=== PATIENT | male | born 1960 | race Caucasian/White ===

== ENCOUNTER 2018-11-02 17:28 | Day surgery (SDC) | payer SELFPAY ==
[~2018-11-02 17:28] MED LIST: PHENYLEPHRINE-NS 100 MCG/ML 10 ML SYRINGE ONE; PROPOFOL 200 MG/20 ML VIAL ONE; Succinylcholine Chloride 20 MG/ML 10 ml SYRINGE FS ONE
[2018-11-02 18:49] LABS: Hemoglobin 14.1 g/dL (14.0-18.0); Mean Corpuscular HGB CONC 34.4 g/dL (32.0-36.0); Mean Corpuscular Hemoglobin 34.9 pg (27.0-31.0); Mean Platelet Volume 6.9 fL (7.4-10.4); Platelet Count 333 thou/uL (130-400); RBC Distribution Width 11.8 % (11.5-14.5); Red Blood Cell (RBC) Count 4.03 mill/uL (4.70-6.10); White Blood Cell (WBC) Count 6.6 thou/uL (4.8-10.8)
[2018-11-02 18:55] LABS: ALT (SGPT) 42 U/L (8-55); AST (SGOT) 40 U/L (5-34); Albumin 4.4 g/dL (3.5-5.0); Alkaline Phosphatase 66 U/L (40-150); Anion Gap 13 mmol/L (10-20); BUN (Urea Nitrogen) 23 mg/dL (8.4-25.7); Bilirubin, Total 0.7 mg/dL (0.2-1.2); Calc. Creatinine Clearance 0 mL/min (70-130); Carbon Dioxide 22 mmol/L (22-29); Chloride 106 mmol/L (98-107); Estimated GFR-MDRD 72; Globulin 4.4 g/dL (2.4-3.5); Glucose 94 mg/dL (70-105); Potassium 3.9 mmol/L (3.5-5.1); Protein, Total 8.8 g/dL (6.0-8.3); Sodium 137 mmol/L (136-145)
[2018-11-02 19:00] LABS: Band 3 % (5-11); Lymphocytes 17 % (21-51); MDiff Complete? YES; Monocytes 17 % (0-10); Neutrophil 62 % (42-75); PLT Morphology Comment Appears Adequate
[2018-11-02] MEDS ORDERED: Midazolam HCl 2 mg/2 ml Vial ONE (19:11)
[2018-11-02] MEDS ORDERED: Fentanyl 100 MCG/2 ML VIAL ONE (19:11)
--- NOTE | 2018-11-03 02:47 | HP ---
GI ER CONSULTATION NOTE REQUESTING PHYSICIAN: Dr. Neri. REASON FOR CONSULTATION: Esophageal food bolus infection. HISTORY OF PRESENT ILLNESS: Chapin Tanner is a 58-year-old man, who is at the [facility] in [place] for the past week for his chronic alcoholism. He denies any other significant past medical or surgical history. He does not take any medications. He is trying to quit smoking and he has been sober from alcohol for the past week, but is normally a heavy drinker. He denies any chronic heartburn symptoms. He says over the years, he has had very occasional episodes of mild dysphagia to solids, feeling like food hangs up in the upper chest, but it has always been quite transient and intermittent. However, today, for lunch, he was having some pot roast and unfortunately, he took a really big bite and felt like it lodged in the upper chest. This has been quite uncomfortable for him for about the past 6 hours now. He has been trying to bring it back up. He tried to induce vomiting with his finger and then actually with a big wooden spoon, but he was unsuccessful at this. He is unable to handle his secretions. Glucagon was tried and was unsuccessful, and he was transferred here for upper endoscopy. He denies any chronic gastrointestinal symptoms. He denies any family history of esophageal malignancy. REVIEW OF SYSTEMS: Full review of systems including constitutional; head, eyes, ears, nose, throat, GI, , cardiovascular, respiratory, musculoskeletal, and neurologic systems is negative, except as noted in the HPI. PAST MEDICAL HISTORY: Alcohol abuse, tobacco abuse. SOCIAL HISTORY: He normally drinks alcohol heavily, but is in rehab for this. He is trying to quit smoking. No drug abuse. FAMILY HISTORY: Negative for GI malignancy. ALLERGIES: NO KNOWN DRUG ALLERGIES. OUTPATIENT MEDICATIONS: None. PHYSICAL EXAMINATION: GENERAL: No acute distress, spitting up into a bag occasionally. SKIN: No jaundice. No rashes were palpable. EYES: No scleral icterus. Extraocular movements intact. ENT: Mucous membranes moist. No oral lesions. LYMPH: No submandibular or supraclavicular lymphadenopathy. THYROID: Nontender to palpation. HEART: Regular rate and rhythm. LUNGS: Clear to auscultation bilaterally. ABDOMEN: Bowel sounds present. Soft and tender to palpation throughout. No masses or organomegaly appreciated. EXTREMITIES: No peripheral edema. VESSELS: Radial pulses 2+ bilaterally. NEUROLOGIC: Cranial nerves 2 through 12 intact bilaterally. No focal deficits. ASSESSMENT AND PLAN: 1. Esophageal food bolus impaction. 2. Chronic intermittent dysphagia. We will need to perform upper endoscopy urgently this evening to remove the foreign body and also ascertain the reason for this episode. I discussed that I might take esophageal biopsies or perform esophageal dilation. He may need chronic acid suppression depending on findings. He desires to proceed. I anticipate he will be able to be discharged back to his rehab facility following the procedure. Job ID: [id number] [facility]
--- NOTE | 2018-11-03 03:11 | OP ---
DATE OF PROCEDURE: 11/02/2018 [employer] SURGEON: None. PROCEDURE PERFORMED: Esophagogastroduodenoscopy with removal of foreign body. INDICATION: Esophageal food bolus impaction. MEDICATIONS: See Anesthesia record. FINDINGS: After discussion of the risks, benefits, and alternatives of the procedure, informed consent was obtained and witnessed. Pre-endoscopic cardiopulmonary examination was satisfactory. Time-out was performed before sedation was achieved. Sedation was achieved with Anesthesia assistance in the endoscopy unit. A Pentax adult upper endoscope was placed into the oropharynx and passed through the cricopharyngeus under direct visualization. In the proximal esophagus, at 15 cm from the incisors, I encountered a large food bolus, which appeared to be large piece of pot roast. This was severely impacted. I used rat-toothed forceps to debulk the meat bolus, this took quite a long time due to the friability of the meat. After an extensive time working on this, the impaction was finally debulked to the point where it would slide easily down the remainder of the esophagus and into the stomach, and thus the food bolus was cleared. Examination of the esophagus revealed significant maceration and edema in the upper esophagus at the site of the food impaction from about 15 cm to 20 cm from the incisors. The remainder of the esophagus appeared normal. There was no evidence of peptic stricture or esophageal ring or any changes consistent with eosinophilic esophagitis. No mass lesion. The endoscope was advanced into the stomach. Forward and retroflexed views of the entire gastric mucosa were obtained and the gastric mucosa appeared normal. The endoscope was passed beyond the pylorus and then into the first and second portions of the duodenum. There were moderate erythema and edema in the duodenal sweep. The upper endoscope was then completely withdrawn and the patient allowed to recover. The patient tolerated the procedure well. There were no immediate postprocedure complications. IMPRESSION: 1. Large food bolus from 15 cm to 20 cm in the upper esophagus, completely removed. 2. Maceration at the impaction site, but otherwise normal-appearing esophagus. 3. Duodenitis. RECOMMENDATIONS: 1. Protonix 40 mg daily for the next month. 2. Chew food thoroughly. 3. Liquid diet tomorrow, then advance slowly thereafter. Job ID: [id number]
== END 2018-11-02 21:39 | disposition home or self-care (01) ==
LOC: ERS 17:28 → SDC/OP 19:55
PROVIDERS: ATTEND Internal Medicine
PROC: 0DC58ZZ Extirpation of Matter from Esophagus, Via Natural or Artificial Opening Endoscopic (ICD-10-PCS; principal; 2018-11-02)
DX: T18.128A Food in esophagus causing other injury, initial encounter (principal); K22.8 Other specified diseases of esophagus; K29.80 Duodenitis without bleeding; F17.210 Nicotine dependence, cigarettes, uncomplicated; F10.10 Alcohol abuse, uncomplicated; R13.10 Dysphagia, unspecified
CPT/HCPCS: 80053; 85025; 99285; J2250; J2704; J3010

== ENCOUNTER 2020-02-08 20:02 | Inpatient (IN) | payer SELFPAY ==
[2020-02-08] MEDS ORDERED: Lorazepam 1 MG TAB ONE (20:44)
[2020-02-08 21:03] LABS: Base Excess-Venous 3.5 mmol/L (-2.0 to 3.0); Bicarbonate (HCO3v) 28.2 mmol/L (22.0-28.0); CO2 Tension (PvCO2) 42.1 mmHg (40.0-50.0); Calcium, Ionized 0.86 mmol/L (See Comments:); Chloride 95 mmol/L (98-107); Hemoglobin - Calc 17.1 g/dL (14.0-18.0); Potassium 7.3 mmol/L (3.5-5.1); Sodium 130 mmol/L (138-145); T. Carbon Dioxide 29.5 mmol/L (22.0-28.0); vO2 Saturation-calc 60.1 % (60.0-85.0)
--- NOTE | 2020-02-08 21:16 | CT ---
Cervical spine CT without contrast: 02/08/2020 COMPARISON: None HISTORY: Seizure, pain, fall TECHNIQUE: Axial CT imaging at 2.5 mm intervals from the thoracic inlet through the skull base withou t contrast. Coronal and sagittal reformatted imaging obtained. FINDINGS: There is moderate degenerative change at the atlantoaxial interspace. The craniocervical ju nction appears intact. Anterior discectomy and fusion hardware noted at the C6-7 level. Chronic bilateral jumped facet joint s noted at the C6-7 level with associated facet joint fusion. There is related anterolisthesis of C6 on C7 which measures in the 6 mm range. No evidence for hardware failure is appreciated. The imaged lung apices appear grossly unremarkable. The C1 ring appears intact. The dens is intact. There is multilevel mild superior cervical spine disc space narrowing with degenerative endplate change. No discrete prevertebral soft tissue swelling. No acute fracture or evidence of dislocation. There is multilevel cervical spine facet and uncoverteb ral osteophyte formation with multilevel upper and mid cervical spine neural foraminal stenosis. No CT evidence of acute fracture or dislocation. IMPRESSION: Multilevel cervical spine degenerative change. Postoperative changes are noted as well. N o convincing evidence for acute osseous abnormality.
[2020-02-08] MEDS ORDERED: Multivitamins, Adult 10 ML, Thiamine HCl 100 MG, Folic Acid 1 MG in Dextrose 5 %-0.45 %... IV SCH (21:30)
[2020-02-08 22:05] LABS: Albumin 4.2 g/dL (3.5-5.0)
[2020-02-08] MEDS ORDERED: Ondansetron PF 4 MG/2 ML Vial IVP PRN (22:06)
[2020-02-08 22:07] LABS: Calcium 8.7 mg/dL (7.8-10.44); Chloride 95 mmol/L (98-107); Potassium 3.5 mmol/L (3.5-5.1); Sodium 132 mmol/L (136-145)
[2020-02-08 22:08] LABS: Glucose 96 mg/dL (70-105); Protein, Total 8.2 g/dL (6.0-8.3)
[2020-02-08 22:10] LABS: Anion Gap 17 mmol/L (10-20); Carbon Dioxide 24 mmol/L (22-29)
[2020-02-08 22:11] LABS: Alkaline Phosphatase 75 U/L (40-110); Calc. Creatinine Clearance 0 mL/min (70-130); Estimated GFR-MDRD Greater than 90
[2020-02-08 22:12] LABS: BUN (Urea Nitrogen) 7 mg/dL (8.4-25.7)
[2020-02-08 22:13] LABS: AST (SGOT) 94 U/L (5-34)
[2020-02-08 22:14] LABS: ALT (SGPT) 58 U/L (8-55)
[2020-02-08 23:25] VITALS: BMI 20.1
[2020-02-08] MEDS: Sodium Chloride 0.9% 1,000 ML IV SCH (23:25)
[2020-02-09 04:39] LABS: ALT (SGPT) 58 U/L (8-55); AST (SGOT) 97 U/L (5-34); Albumin 4.1 g/dL (3.5-5.0); Alkaline Phosphatase 74 U/L (40-110); Anion Gap 16 mmol/L (10-20); BUN (Urea Nitrogen) 6 mg/dL (8.4-25.7); Calc. Creatinine Clearance 92 mL/min (70-130); Calcium 8.5 mg/dL (7.8-10.44); Carbon Dioxide 24 mmol/L (22-29); Chloride 95 mmol/L (98-107); Estimated GFR-MDRD Greater than 90; Globulin 4.5 g/dL (2.4-3.5); Glucose 107 mg/dL (70-105); Potassium 3.8 mmol/L (3.5-5.1); Protein, Total 8.6 g/dL (6.0-8.3); Sodium 131 mmol/L (136-145)
--- NOTE | 2020-02-09 05:23 | HP ---
CHIEF COMPLAINT: Seizure. HISTORY OF PRESENT ILLNESS: Mr. Tanner is a 59-year-old male with past medical history of alcohol dependence, seizures, presents to the ED after the patient had a seizure episode? and alcohol withdrawal. The patient has been drinking until yesterday and before going to [facility]. As per the patient, he takes medications for seizure and he has been not taking it until Monday when he started taking it again, ? Dilantin. In the emergency room, the patient appears to be restless, tremors. The patient is on IV fluids and was given Valium and the patient is being admitted to the hospital for further management. PAST MEDICAL HISTORY: As mentioned above in the history of present illness. PAST SURGICAL HISTORY: 1. Tonsillectomy. 2. Pelvic repair. 3. Back and neck surgery. SOCIAL HISTORY: The patient drinks every day about 5 to 6 drinks a day. He said that he quit smoking a few days ago. The patient lives in a alf. ALLERGIES: NO KNOWN ALLERGIES. CURRENT MEDICATIONS: Please see home medication reconciliation form for updated medications. FAMILY HISTORY: Reviewed and noncontributory. REVIEW OF SYSTEMS: Review of 14 systems negative except what is mentioned in history of present illness. PHYSICAL EXAMINATION: GENERAL: The patient is awake, alert, anxious, and restless. VITAL SIGNS: Blood pressure 108/86, pulse is 94, respiratory rate is 18, temperature is 98.6, pulse oximetry is 97% on room air. HEAD AND NECK: Normocephalic. NECK: There is tenderness at the level of C2. CHEST: Fair bilateral entry. HEART: S1, S2. Regular. ABDOMEN: Soft, nontender. Bowel sounds present. NEUROLOGIC: Awake, alert, and oriented. PSYCHIATRIC: Restless and anxious. GENITOURINARY: No suprapubic tenderness. No flank tenderness. Medications administered in the ED are banana bag and lorazepam. LABORATORY DATA: Sodium 130, potassium 3.5, BUN 7, creatinine 0.7. CT of cervical spine, no acute findings. ASSESSMENT AND PLAN: 1. Alcohol withdrawal. 2. Seizures. PLAN: 1. Admit. 2. Frequent neuro checks. 3. Seizure and fall precautions. 4. IV fluid hydration. 5. IV benzodiazepine as needed for alcohol withdrawal. 6. Reconcile home medications. 7. DVT prophylaxis as appropriate. 8. Expected length of stay at least 1 midnight if patient stable. Job ID: [id number]
[2020-02-09] MEDS: Sodium Chloride 0.9% 1,000 ML IV SCH ×3 (05:53→17:30)
[2020-02-09] MEDS: Famotidine/PF 20 mg/2ml Vial SLOW IVP SCH ×2 (08:24→21:01)
[2020-02-09] MEDS ORDERED: FLU VACC QS2019-20(6MOS UP)/PF 60 MCG/0.5 ML SYRINGE IM ONE (09:00)
[2020-02-09] MEDS: Fosphenytoin Sodium 100 MG in Sodium Chloride 0.9% 50 ML IVPB SCH ×2 (09:58→21:01)
[2020-02-09] MEDS ORDERED: Lorazepam 1 MG TAB PO PRN (12:48)
[2020-02-09] MEDS ORDERED: Dextrose 50% Abboject 50 ML SYRINGE SLOW IVP PRN (12:52)
[2020-02-09] MEDS ORDERED: Dextrose 5% in Water 1,000 ML IV PRN (12:52)
[2020-02-09] MEDS: Lorazepam 1 MG TAB PO PRN ×3 (13:20→18:46)
[2020-02-09] MEDS ORDERED: Lorazepam 2 MG/ML VIAL SLOW IVP PRN ×3 (19:31→21:05)
[2020-02-09] MEDS ORDERED: Nicotine 21 MG PATCH TD SCH (19:45)
--- NOTE | 2020-02-09 19:54 | PDOC.EVN ---
Event Note - Event Note Event Note: Received text at 7:15pm that Mr. Tanner remains agitated while discussing another patient with Nurse Worrell. While discussing patient and asking how frequently can patient be administered Ativan on the Telemetry floor, nurse sent priority message "I think this pt is detoxing seriously. Can you come see him please." At 7:26pm. Not present in hospital since no longer optimization specialist. Increased ativan dose and requested nurse to notify optimization specialist physician in case additional intervention required.
[2020-02-09] MEDS: Lorazepam 2 MG/ML VIAL SLOW IVP PRN ×2 (21:01→22:55)
--- NOTE | 2020-02-09 21:52 | PDOC.HOSPP ---
- Subjective Encounter Date: 02/09/20 Encounter Time: 13:15 Subjective: continues to be agitated. not cooperative during encounter. - Objective Vital Signs & Weight: Vital Signs (12 hours) Temp Pulse Resp BP BP 02/09/20 16:00 98.5 F 108 H 18 141/88 H 141/88 H 02/09/20 12:00 98.5 F 108 H 20 149/85 H 149/85 H Weight Weight 128 lb 8.472 oz I&O: 02/08/20 02/09/20 02/10/20 06:59 06:59 06:59 Intake Total 1000 2488 Output Total 350 200 Balance 650 2288 Result Diagrams: 02/09/20 03:57 Additional Labs: Accuchecks 02/09/20 02/09/20 20:39 16:49 POC Glucose 99 94 Hospitalist ROS - Review of Systems ROS unobtainable: due to mental status - Medication Medications: Active Medications Generic Name Dose Route Start Last Admin Trade Name Freq PRN Reason Stop Dose Admin Famotidine 20 mg 02/09/20 09:00 02/09/20 21:01 Pepcid SLOW IVP 20 mg Q12HR TONIA Administration Fosphenytoin Sodium 100 mg/ 52 mls @ 100 mls/hr 02/09/20 09:00 02/09/20 21:01 Sodium Chloride IVPB 52 mls Q12HR TONIA Administration Thiamine HCl 100 mg/ Sodium 51 mls @ 100 mls/hr 02/09/20 13:00 02/09/20 14:00 Chloride IVPB 51 mls Q24HR TONIA Administration Sodium Chloride 1,000 mls @ 100 mls/hr 02/09/20 13:00 02/09/20 17:30 Normal Saline 0.9% IV 1,000 mls .Q10H TONIA Administration Lorazepam 2 mg 02/08/20 22:11 02/09/20 21:01 Ativan SLOW IVP 2 mg Q15M PRN Administration Seizures Sodium Chloride 10 ml 02/09/20 21:00 02/09/20 21:02 Flush - Normal Saline IVF 10 ml Q12HR TONIA Administration - Exam General - other findings: restless, anxious Heart: no murmur, no gallops, no rubs Heart - other findings: tachycardic Respiratory: CTAB, no wheezes, no rales, no ronchi, normal chest expansion, no tachypnea, normal percussion Gastrointestinal: soft, non-tender, non-distended, normal bowel sounds, no palpable masses, no hepatomegaly, no splenomegaly, no bruit Extremities: no edema Psychiatric: negative: oriented to person, oriented to place, oriented to time Hosp A/P - Plan #alcohol withdrawal -CT cervical showing no acute osseous process -will start Ativan IVP PRN alcohol withdrawal CIWA > 7; keep RASS between 0 to - 2; will avoid long acting agents for now considering hepatitis Full code DVT PPx: SCDs GI PPx: no Ix
[2020-02-10] MEDS ORDERED: Diazepam 10 MG/2 ML SYRINGE IVP PRN (00:25)
[2020-02-10] MEDS ORDERED: chlordiazePOXIDE HCl 25 MG CAP PO SCH (06:00)
[2020-02-10] MEDS: Sodium Chloride 0.9% 1,000 ML IV SCH ×2 (06:42→17:56)
[2020-02-10] MEDS: Nicotine 21 MG PATCH TD SCH (07:43)
[2020-02-10] MEDS: Famotidine/PF 20 mg/2ml Vial SLOW IVP SCH ×2 (07:44→20:57)
[2020-02-10] MEDS: Fosphenytoin Sodium 100 MG in Sodium Chloride 0.9% 50 ML IVPB SCH ×2 (09:11→20:57)
[2020-02-10] MEDS: Lorazepam 2 MG/ML VIAL SLOW IVP PRN ×5 (09:48→21:17)
[2020-02-10] MEDS: Folic Acid 1 MG TAB PO SCH (09:50)
--- NOTE | 2020-02-10 20:44 | PDOC.HOSPP ---
- Subjective Encounter Date: 02/10/20 Encounter Time: 07:45 Subjective: overnight, more relaxed. This morning, laying in bed comfortably and has no complaints. - Objective Vital Signs & Weight: Vital Signs (12 hours) Temp Pulse Resp BP BP Pulse Ox 02/10/20 20:00 98.3 F 110 H 18 148/99 H 97 02/10/20 16:00 98.2 F 108 H 20 121/86 96 02/10/20 13:00 95 02/10/20 09:57 139/92 H Weight Weight 128 lb 8.472 oz I&O: 02/09/20 02/10/20 02/11/20 06:59 06:59 06:59 Intake Total 1000 3603 850 Output Total 350 200 700 Balance 650 3403 150 Result Diagrams: 02/09/20 03:57 Additional Labs: Accuchecks 02/10/20 02/10/20 02/10/20 16:31 14:40 09:08 POC Glucose 116 H 97 97 02/10/20 02/09/20 04:33 20:39 POC Glucose 85 99 Hospitalist ROS - Review of Systems Constitutional: denies: fever, chills, sweats, weakness, malaise, other Respiratory: denies: cough, dry, shortness of breath, hemoptysis, SOB with excertion, pleuritic pain, sputum, wheezing, other Cardiovascular: denies: chest pain, palpitations, orthopnea, paroxysmal noc. dyspnea, edema, light headedness, other Gastrointestinal: denies: nausea, vomiting, abdominal pain, diarrhea, constipation, melena, hematochezia, other Genitourinary: denies: dysuria, frequency, incontinence, hematuria, retention, other Neurological: denies: weakness, numbness, incoordination, change in speech, confusion, seizures, other - Medication Medications: Active Medications Generic Name Dose Route Start Last Admin Trade Name Freq PRN Reason Stop Dose Admin Famotidine 20 mg 02/09/20 09:00 02/10/20 07:44 Pepcid SLOW IVP 20 mg Q12HR TONIA Administration Folic Acid 1 mg 02/10/20 09:00 02/10/20 09:50 Folvite PO Not Given DAILY TONIA Fosphenytoin Sodium 100 mg/ 52 mls @ 100 mls/hr 02/09/20 09:00 02/10/20 09:11 Sodium Chloride IVPB 52 mls Q12HR TONIA Administration Thiamine HCl 100 mg/ Sodium 51 mls @ 100 mls/hr 02/09/20 13:00 02/10/20 13:00 Chloride IVPB 51 mls Q24HR TONIA Administration Sodium Chloride 1,000 mls @ 100 mls/hr 02/09/20 13:00 02/10/20 17:56 Normal Saline 0.9% IV 1,000 mls .Q10H TONIA Administration Lorazepam 2 mg 02/08/20 22:11 02/09/20 21:01 Ativan SLOW IVP 2 mg Q15M PRN Administration Seizures Lorazepam 4 mg 02/09/20 21:07 02/10/20 17:56 Ativan SLOW IVP 4 mg Q2H PRN Administration Alcohol Withdrawal Nicotine 21 mg 02/10/20 09:00 02/10/20 07:43 Nicoderm Patch TD 21 mg DAILY TONIA Administration Sodium Chloride 10 ml 02/09/20 21:00 02/10/20 07:44 Flush - Normal Saline IVF 10 ml Q12HR TONIA Administration - Exam General Appearance: NAD, awake alert General - other findings: mildly drowsy after receiving benzo Eye: PERRL, anicteric sclera Neck: no JVD Heart: no murmur, no gallops, no rubs Heart - other findings: regular rhythm, mildy tachycardic Respiratory: CTAB, no wheezes, no rales, no ronchi Gastrointestinal: soft, non-tender, non-distended, normal bowel sounds, no palpable masses, no hepatomegaly, no splenomegaly, no bruit Extremities: no edema Psychiatric: oriented to person, oriented to place. negative: oriented to time Hosp A/P - Plan #alcohol withdrawal -received diazepam 10mg x 1, 10mg ativan overnight; currently CIWA < 8, calm - continue Ativan IVP PRN alcohol withdrawal CIWA > 7; keep RASS between 0 to -2 ; will avoid long acting agents for now considering alcoholic hepatitis -transfer to medical floor Full code DVT PPx: SCDs GI PPx: no Ix expected discharge 02/10
[2020-02-11] MEDS: Lorazepam 2 MG/ML VIAL SLOW IVP PRN ×5 (03:28→23:10)
--- NOTE | 2020-02-11 05:57 | PDOC.HOSPP ---
- Subjective Encounter Date: 02/11/20 Encounter Time: 10:00 Subjective: overnight, continues to require treatment for alcohol withdrawal. This morning, appears drowsy. has no complaints - Objective Vital Signs & Weight: Vital Signs (12 hours) Temp Pulse Resp BP Pulse Ox 02/11/20 03:39 98.2 F 108 H 18 143/95 H 96 02/11/20 00:00 97.9 F 103 H 13 143/93 H 100 02/10/20 20:00 98.3 F 110 H 18 148/99 H 100 Weight Weight 128 lb 8.472 oz I&O: 02/09/20 02/10/20 02/11/20 06:59 06:59 06:59 Intake Total 1000 3603 850 Output Total 350 200 700 Balance 650 3403 150 Result Diagrams: 02/09/20 03:57 Additional Labs: Accuchecks 02/11/20 02/10/20 02/10/20 00:40 20:29 16:31 POC Glucose 95 97 116 H 02/10/20 02/10/20 14:40 09:08 POC Glucose 97 97 Hospitalist ROS - Review of Systems Constitutional: denies: fever, chills, sweats, weakness, malaise, other Respiratory: denies: cough, dry, shortness of breath, hemoptysis, SOB with excertion, pleuritic pain, sputum, wheezing, other Cardiovascular: denies: chest pain, palpitations, orthopnea, paroxysmal noc. dyspnea, edema, light headedness, other Gastrointestinal: denies: nausea, vomiting, abdominal pain, diarrhea, constipation, melena, hematochezia, other Genitourinary: denies: dysuria, frequency, incontinence, hematuria, retention, other - Medication Medications: Active Medications Generic Name Dose Route Start Last Admin Trade Name Freq PRN Reason Stop Dose Admin Famotidine 20 mg 02/09/20 09:00 02/10/20 20:57 Pepcid SLOW IVP 20 mg Q12HR TONIA Administration Folic Acid 1 mg 02/10/20 09:00 02/10/20 09:50 Folvite PO Not Given DAILY TONIA Fosphenytoin Sodium 100 mg/ 52 mls @ 100 mls/hr 02/09/20 09:00 02/10/20 20:57 Sodium Chloride IVPB 52 mls Q12HR TONIA Administration Thiamine HCl 100 mg/ Sodium 51 mls @ 100 mls/hr 02/09/20 13:00 02/10/20 13:00 Chloride IVPB 51 mls Q24HR TONIA Administration Sodium Chloride 1,000 mls @ 100 mls/hr 02/09/20 13:00 02/10/20 17:56 Normal Saline 0.9% IV 1,000 mls .Q10H TONIA Administration Lorazepam 2 mg 02/08/20 22:11 02/09/20 21:01 Ativan SLOW IVP 2 mg Q15M PRN Administration Seizures Lorazepam 4 mg 02/09/20 21:07 02/11/20 03:28 Ativan SLOW IVP 4 mg Q2H PRN Administration Alcohol Withdrawal Nicotine 21 mg 02/10/20 09:00 02/10/20 07:43 Nicoderm Patch TD 21 mg DAILY TONIA Administration Sodium Chloride 10 ml 02/09/20 21:00 02/10/20 21:00 Flush - Normal Saline IVF 10 ml Q12HR TONIA Administration - Exam General Appearance: NAD General - other findings: drwosy Eye: anicteric sclera Neck: no JVD Heart: RRR, no murmur, no gallops, no rubs Respiratory: CTAB, no wheezes, no rales, no ronchi, normal chest expansion, no tachypnea, normal percussion Gastrointestinal: soft, non-tender, non-distended, normal bowel sounds, no palpable masses, no hepatomegaly, no splenomegaly, no bruit Extremities: no edema Psychiatric: oriented to person, oriented to place. negative: oriented to time Hosp A/P - Plan #alcohol withdrawal - continue Ativan IVP PRN alcohol withdrawal CIWA > 7; keep RASS between 0 to -2 ; will avoid long acting agents for now considering alcoholic hepatitis -transfer to medical floor Full code DVT PPx: SCDs GI PPx: no Ix expected discharge 02/11
[2020-02-11 06:28] LABS: Anion Gap 16 mmol/L (10-20); BUN (Urea Nitrogen) 6 mg/dL (8.4-25.7); Calc. Creatinine Clearance 96 mL/min (70-130); Calcium 8.2 mg/dL (7.8-10.44); Carbon Dioxide 21 mmol/L (22-29); Chloride 100 mmol/L (98-107); Estimated GFR-MDRD Greater than 90; Glucose 97 mg/dL (70-105); Magnesium 1.5 mg/dL (1.6-2.6); Phosphorus 2.8 mg/dL (2.3-4.7); Sodium 134 mmol/L (136-145)
[2020-02-11 06:37] LABS: #Basophils 0.1 thou/uL (0.0-0.2); #Eosinphils 0.1 thou/uL (0.0-0.7); #Lymphocytes 1.1 thou/uL (1.20-3.40); #Neutrophils 4.7 thou/uL (1.40-6.50); %Eosinophils 1.3 % (0.0-10.0); %Lymphocytes 16.4 % (21.0-51.0); %Monocytes 14.4 % (0.0-10.0); %Neutrophils 66.9 % (42.0-75.0); Mean Corpuscular HGB CONC 33.1 g/dL (32.0-36.0); Mean Corpuscular Hemoglobin 33.1 pg (27.0-31.0); Mean Platelet Volume 8.4 fL (7.4-10.4); Platelet Count 94 thou/uL (130-400); RBC Distribution Width 11.5 % (11.5-14.5); Red Blood Cell (RBC) Count 4.52 mill/uL (4.70-6.10)
[2020-02-11] MEDS: Fosphenytoin Sodium 100 MG in Sodium Chloride 0.9% 50 ML IVPB SCH ×2 (08:49→22:59)
[2020-02-11] MEDS: Nicotine 21 MG PATCH TD SCH (08:49)
[2020-02-11] MEDS: Famotidine/PF 20 mg/2ml Vial SLOW IVP SCH ×2 (08:50→23:00)
[2020-02-11] MEDS: Sodium Chloride 0.9% 1,000 ML IV SCH ×2 (08:50→21:00)
[2020-02-11] MEDS ORDERED: Magnesium Oxide 400 MG TAB PO SCH (09:00)
[2020-02-11] MEDS: Folic Acid 1 MG TAB PO SCH (11:17)
[2020-02-11] MEDS: Potassium Chloride 20 MEQ TAB PO SCH ×2 (11:17→14:19)
[2020-02-11] MEDS ORDERED: Magnesium 2 GM/50 ML 2 GM in Premix Bag 1 BAG IVPB SCH (11:30)
[2020-02-11] MEDS: Potassium Chloride 40 MEQ in Sodium Chloride 0.9% 250 ML 250 ML IVPB SCH ×2 (12:37→18:33)
[2020-02-12 06:38] LABS: Anion Gap 13 mmol/L (10-20); BUN (Urea Nitrogen) 6 mg/dL (8.4-25.7); Calc. Creatinine Clearance 101 mL/min (70-130); Calcium 8.9 mg/dL (7.8-10.44); Carbon Dioxide 23 mmol/L (22-29); Chloride 102 mmol/L (98-107); Estimated GFR-MDRD Greater than 90; Glucose 96 mg/dL (70-105); Magnesium 1.7 mg/dL (1.6-2.6); Potassium 3.6 mmol/L (3.5-5.1); Sodium 134 mmol/L (136-145)
[2020-02-12] MEDS: Lorazepam 2 MG/ML VIAL SLOW IVP PRN (07:03)
[2020-02-12] MEDS ORDERED: Potassium Chloride 20 MEQ TAB PO SCH (07:50)
[2020-02-12] MEDS ORDERED: Magnesium Oxide 400 MG TAB PO SCH (08:00)
[2020-02-12] MEDS ORDERED: Lisinopril 10 MG TAB PO SCH (08:15)
[2020-02-12] MEDS: Sodium Chloride 0.9% 1,000 ML IV SCH ×2 (08:48→18:41)
[2020-02-12] MEDS: Folic Acid 1 MG TAB PO SCH (08:49)
[2020-02-12] MEDS: Famotidine/PF 20 mg/2ml Vial SLOW IVP SCH ×2 (08:49→21:40)
[2020-02-12] MEDS: Nicotine 21 MG PATCH TD SCH (08:50)
[2020-02-12] MEDS ORDERED: Lorazepam 2 MG/ML VIAL SLOW IVP PRN (12:56)
--- NOTE | 2020-02-12 13:16 | RAD ---
RIGHT SHOULDER 2 VIEWS: Date: 02/12/2020 HISTORY: Fall, trauma, seizure, right shoulder pain. FINDINGS/IMPRESSION: No acute fracture or dislocation seen. Degenerative changes are present. POS: [facility]
[2020-02-12] MEDS: Fosphenytoin Sodium 100 MG in Sodium Chloride 0.9% 50 ML IVPB SCH ×2 (18:03→21:39)
--- NOTE | 2020-02-12 19:10 | PDOC.HOSPP ---
- Subjective Encounter Date: 02/12/20 Encounter Time: 11:30 Subjective: no overnight events. This morning, appears in distress, still weak speech, receiving 2mg ativan, RASS -3. Complains of right shoulder pain. - Objective Vital Signs & Weight: Vital Signs (12 hours) Temp Pulse Resp BP BP Pulse Ox 02/12/20 16:00 98.4 F 97 22 H 104/69 96 02/12/20 12:00 129/85 02/12/20 11:00 98.5 F 102 H 22 H 129/85 97 02/12/20 09:31 168/109 H 02/12/20 08:53 168/109 H 02/12/20 08:00 168/109 H 97 02/12/20 07:17 98.1 F 100 20 168/109 H 97 Weight Weight 129 lb 3.2 oz I&O: 02/11/20 02/12/20 02/13/20 06:59 06:59 06:59 Intake Total 850 1900 1680 Output Total 700 400 Balance 150 1900 1280 Result Diagrams: 02/11/20 05:34 02/12/20 06:06 Additional Labs: Accuchecks 02/12/20 02/12/20 02/12/20 16:45 11:24 03:50 POC Glucose 187 H 107 109 02/12/20 02/11/20 00:08 22:06 POC Glucose 98 102 Hospitalist ROS - Review of Systems Respiratory: denies: cough, dry, shortness of breath, hemoptysis, SOB with excertion, pleuritic pain, sputum, wheezing, other Cardiovascular: denies: chest pain, palpitations, orthopnea, paroxysmal noc. dyspnea, edema, light headedness, other Gastrointestinal: denies: nausea, vomiting, abdominal pain, diarrhea, constipation, melena, hematochezia, other Genitourinary: denies: dysuria, frequency, incontinence, hematuria, retention, other Musculoskeletal: reports: shoulder pain - Medication Medications: Active Medications Generic Name Dose Route Start Last Admin Trade Name Freq PRN Reason Stop Dose Admin Famotidine 20 mg 02/09/20 09:00 02/12/20 08:49 Pepcid SLOW IVP 20 mg Q12HR TONIA Administration Folic Acid 1 mg 02/10/20 09:00 02/12/20 08:49 Folvite PO 1 mg DAILY TONIA Administration Fosphenytoin Sodium 100 mg/ 52 mls @ 100 mls/hr 02/09/20 09:00 02/12/20 18:03 Sodium Chloride IVPB Not Given Q12HR TONIA Thiamine HCl 100 mg/ Sodium 51 mls @ 100 mls/hr 02/09/20 13:00 02/12/20 12:58 Chloride IVPB 51 mls Q24HR TONIA Administration Sodium Chloride 1,000 mls @ 100 mls/hr 02/09/20 13:00 02/12/20 18:41 Normal Saline 0.9% IV 1,000 mls .Q10H TONIA Administration Lisinopril 10 mg 02/13/20 09:00 02/12/20 08:53 Zestril PO 10 mg DAILY TONIA Administration Lorazepam 2 mg 02/08/20 22:11 02/11/20 17:39 Ativan SLOW IVP 2 mg Q15M PRN Administration Seizures Nicotine 21 mg 02/10/20 09:00 02/12/20 08:50 Nicoderm Patch TD 21 mg DAILY TONIA Administration Sodium Chloride 10 ml 02/09/20 21:00 02/12/20 08:50 Flush - Normal Saline IVF Not Given Q12HR TONIA - Exam General Appearance: awake alert, ill appearing Neck: no JVD Heart: no murmur, no gallops, no rubs, normal peripheral pulses Heart - other findings: normal rhythm, tachycardic Respiratory: CTAB, no wheezes, no rales, no ronchi, normal chest expansion, no tachypnea, normal percussion Gastrointestinal: soft, non-tender, non-distended, normal bowel sounds, no palpable masses, no hepatomegaly, no splenomegaly, no bruit Extremities: no edema Musculoskeletal - other findings: can't raise right arm due to pain in shoulder ; pain to palpation anterior s Psychiatric: normal behavior, A&O x 3, flat affect Hosp A/P - Plan #alcohol withdrawal -in terms of ASE, improving - reduce ativan to 1mg due to oversedation; keep RASS between 0 to -2; #right shoulder pain -may be due to seizure/fall -shoulder xray Full code DVT PPx: SCDs GI PPx: no Ix expected discharge 02/12
[2020-02-12] MEDS ORDERED: Ketorolac Tromethamine 30 MG/ML VIAL IVP SCH (21:00)
[2020-02-12 21:29] LABS: ALT (SGPT) 34 U/L (8-55); AST (SGOT) 52 U/L (5-34); Albumin 3.4 g/dL (3.5-5.0); Alkaline Phosphatase 80 U/L (40-110); Bilirubin, Direct 0.3 mg/dL (0.1-0.3); Bilirubin, Total 0.9 mg/dL (0.2-1.2); Lipase 93 U/L (8-78); Protein, Total 7.3 g/dL (6.0-8.3)
[2020-02-12] MEDS: BIOTENE MOUTH SPRAY 44.3 ML PO SCH (21:40)
[2020-02-13 04:18] VITALS: BP 133/86; TEMP 98.1
[2020-02-13] MEDS: Sodium Chloride 0.9% 1,000 ML IV SCH ×2 (04:20→14:29)
[2020-02-13] MEDS: Famotidine/PF 20 mg/2ml Vial SLOW IVP SCH (08:30)
[2020-02-13] MEDS: Folic Acid 1 MG TAB PO SCH (08:30)
[2020-02-13] MEDS: Nicotine 21 MG PATCH TD SCH (08:30)
[2020-02-13] MEDS: BIOTENE MOUTH SPRAY 44.3 ML PO SCH ×2 (08:31→14:29)
[2020-02-13] MEDS ORDERED: Lisinopril 10 MG TAB PO SCH (09:00)
[2020-02-13] MEDS: Fosphenytoin Sodium 100 MG in Sodium Chloride 0.9% 50 ML IVPB SCH (09:15)
--- NOTE | 2020-02-14 12:14 | DIS ---
DATE OF ADMISSION: 02/08/2020 DATE OF DISCHARGE: 02/13/2020 HOSPITAL COURSE: Mr. Tanner is a 59-year-old male with a medical history of alcohol abuse and seizures, who presented to the ED after a seizure episode. He was diagnosed with alcohol withdrawal-induced seizures. The patient was treated with benzodiazepine and he did not additional seizures as an inpatient. However, he did exhibit signs of delirium tremens and required significant dosages of benzodiazepines over three days. 1. Alcohol withdrawal, alcohol withdrawal seizures. a. The patient was treated with benzodiazepines and improved to baseline levels. b. Prior to discharge, the patient was ambulating on the floor with Physical Therapy. c. The patient returned to his alcohol rehab facility after discussion regarding his alcohol abuse and consequences. On the day of discharge, the patient was hemodynamically stable and exhibited no signs of alcohol withdrawal despite being off benzodiazepines for nearly a day. PHYSICAL EXAMINATION: VITAL SIGNS: Unremarkable. GENERAL: On exam, he was in no apparent distress. Alert and oriented x3. CARDIAC EXAM: Regular rate and rhythm. No gallops, murmurs, or rubs. RESPIRATORY EXAM: Clear to auscultation bilaterally. No wheezes, no rales, no rhonchi. No tachypnea. GI EXAM: Soft, nontender, nondistended. Normal bowel sounds. EXTREMITY EXAM: No edema. PSYCHIATRIC EXAM: Oriented x3. Proper mood and affect. Job ID: [id number]
== END 2020-02-13 15:35 | disposition home or self-care (01) | DRG 897 ==
LOC: ERS 20:02 → 2NO 21:19 → T4-B 02-10 11:37
PROVIDERS: ADMIT Internal Medicine; ATTEND Internal Medicine
PROC: HZ2ZZZZ Detoxification Services for Substance Abuse Treatment (ICD-10-PCS; principal; 2020-02-08)
DX: F10.239 Alcohol dependence with withdrawal, unspecified (principal); M25.511 Pain in right shoulder; Z87.891 Personal history of nicotine dependence; Z98.890 Other specified postprocedural states; G40.909 Epilepsy, unspecified, not intractable, without status epilepticus; E88.89 Other specified metabolic disorders; Y90.9 Presence of alcohol in blood, level not specified
CPT/HCPCS: 36415; 36416; 72125; 80048; 80053; 80076; 82330; 82803; 83690; 83735; 84100; 85025; 96365; J1885; J2060; J3360; J3411; J3475; J3480; J7042; J7050; Q2009; S0028